=== PATIENT | female | born 1985 | race Caucasian/White ===

== ENCOUNTER 2018-05-21 20:36 | Emergency (ER) | payer MEDICAID, OTHER ==
[~2018-05-21] VITALS: Ht 167.6 cm; Wt 80.7 kg
[2018-05-21 20:52] VITALS: BP 168/93
== END 2018-05-21 23:00 | disposition left against medical advice (07) ==
LOC: ER 20:40
DX: M79.641 Pain in right hand (principal); Z53.21 Procedure and treatment not carried out due to patient leaving prior to being seen by health care provider

== ENCOUNTER 2020-02-11 15:34 | Emergency (ER) | payer SELFPAY ==
[~2020-02-11] VITALS: Ht 167.6 cm; Wt 72.6 kg
[~2020-02-11 15:34] MED LIST: ACYC-161 PO; PREN-96 PO
[2020-02-11 21:22] VITALS: BP 134/83
[2020-02-11] MEDS ORDERED: cefTRIAXone SOD 1,000 MG VL IM ONE (21:30)
== END 2020-02-11 22:46 | disposition home or self-care (01) ==
LOC: ER 15:34
DX: L02.01 Cutaneous abscess of face (principal); L02.811 Cutaneous abscess of head [any part, except face]; L02.11 Cutaneous abscess of neck; Z79.899 Other long term (current) drug therapy
CPT/HCPCS: 96372; 99283; J0696

== ENCOUNTER 2025-03-20 03:06 | Emergency (ER) | payer MEDICAID ==
[~2025-03-20] VITALS: Ht 167.6 cm; Wt 66.1 kg
[~2025-03-20 03:06] MED LIST changes: -ACYC-161 PO; +ACYC400T16 PO
--- NOTE | 2025-03-20 03:34 | ED.PDOC ---
History of Present Illness HPI Comments 39-year-old, homeless female presents with chief complaint of nonradiating, right-sided chest pain. Patient has some this pain intermittently for years, however states she does not like doctors which is why she did not get evaluated for this previously. She reports having associated nonproductive cough and nausea today in addition to having a fever that resolved on its own yesterday although she did not measure her temperature. No pertinent medical, surgical, or family cardiac history. She denies taking any medications currently. Social history for alcohol, tobacco cigarettes, and methamphetamine use. Patient reports last using methamphetamine at 1700, yesterday. Patient denies having any shortness of breath, vomiting, fever, chills, or further acute symptoms. Chief Complaint: Chest pain Time Seen by MD: 03:20 Reviewed Notes: Nurses Notes, Medications, Allergies Allergies: Coded Allergies: NO KNOWN ALLERGIES (Unverified , 05/31/18) Home Meds Reported Medications Vit W/ Ferrous Fumara ( One Daily) Daily Tab, 1 TAB PO DAILY, #90 TAB 3 Refills 06/01/18 Acyclovir (ZOVIRAX TABLET) 400 Mg Tb, 1 TAB PO BID, #60 TAB 3 Refills 06/01/18 Information Source: Patient Mode of Arrival: Ambulatory Severity: Moderate Timing: Days Duration: Since onset Prehospital treatment: None Past Medical History PAST MEDICAL HISTORY: Denies Surgical History: Denies all surgeries 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 History Family History Family History: Reviewed,noncontributory to illness, No family hx of Cancer, No family hx of DM, No family hx of Heart tim, No family hx of HTN, No family hx ofKidney tim, No family hx of Liver tim, No family hx of Lung tim, No family hx of Stroke Social History Smoker: Cigarettes Alcohol: Occasionally Drugs: Methamphetamine Lives In: Homeless All Other Systems: Reviewed and Negative (Comprehensive review of systems are negative unless otherwise stated in HPI) Physical Exam General Appearance: No Apparent Distress, Normal HEENT: Normal ENT Inspection, Pharynx Normal, TMs Normal Neck: Full Range of Motion, Non-Tender, Normal, Normal Inspection Respiratory: Chest Non-Tender, Lungs Clear, No Accessory Muscle Use, No Respiratory Distress, Normal Breath Sounds Cardiovascular: No Edema, No JVD, No Murmur, No Gallop, Normal Peripheral Pulses, Regular Rate/Rhythm Breast Exam: Deferred Gastrointestinal: No Organomegaly, Non Tender, No Pulsatile Mass, Normal Bowel Sounds, Soft Genitalia: Deferred Pelvic: Deferred Rectal: Deferred Extremities: No calf tenderness, Normal capillary refill, Normal inspection, Normal range of motion, Non-tender, No pedal edema Musculoskeletal : Apperance: Normal Neurologic: Alert, jig operator II-XII nml as Tested, No Motor Deficits, Normal Affect, Normal Mood, No Sensory Deficits Cerebellar Function: Normal Reflexes: Normal Skin: Dry, Normal Color, Warm Lymphatic: No Adenopathy Was a procedure done? Was a procedure done?: No EKG EKG : Pulse Rate (adult): 93 [place]: Normal Cardiac Rhythm: NSR Block: None Hypertrophy: None ST: Normal Differential Dx Considerations may include: NC, PE, ACS, URI, pneumonia, angina, anxiety, GERD, substance abuse, substance dependency, among others X-Ray, Labs, Meds, VS Vital Signs Date Time Temp Pulse Resp B/P (MAP) Pulse Ox O2 Delivery O2 Flow Rate FiO2 03/20/25 05:06 97.9 85 16 136/81 (99) 100 97.9 03/20/25 04:19 94 03/20/25 03:33 93 03/20/25 03:07 97.7 100 18 156/102 99 97.7 Lab Test 03/20/25 04:44 03/20/25 03:35 Range/Units Troponin I High Sensitivity Pending < 3 L </=34 ng/L White Blood Count 4.3 L 4.4-10.8 10^3/uL Red Blood Count 3.84 L 4.0-5.20 10^6/uL Hemoglobin 13.4 12.2-16.2 g/dL Hematocrit 39.2 36.0-46.0 % Mean Corpuscular Volume 102.1 H 80.0-100.0 fL Mean Corpuscular Hemoglobin 34.9 H 28.0-32.0 pg Mean Corpuscular Hemoglobin Concent 34.2 32.0-36.0 g/dL Red Cell Distribution Width 11.9 11.8-14.3 % Platelet Count 240 140-450 10^3/uL Mean Platelet Volume 8.0 6.9-10.8 fL Neutrophils (%) (Auto) 42.8 37.0-80.0 % Lymphocytes (%) (Auto) 49.2 10.0-50.0 % Monocytes (%) (Auto) 6.1 0.0-12.0 % Eosinophils (%) (Auto) 1.4 0.0-7.0 % Basophils (%) (Auto) 0.5 0.0-2.0 % Neutrophils # (Auto) 1.9 1.6-8.6 10 ^3/uL Lymphocytes # (Auto) 2.1 0.4-5.4 10 ^3/uL Monocytes # (Auto) 0.3 0-1.3 10 ^3/uL Eosinophils # (Auto) 0.1 0-0.8 10 ^3/uL Basophils # (Auto) 0 0-0.2 10 ^3/uL Nucleated Red Blood Cells 0.1 % Sodium Level 145 136-145 mmol/L Potassium Level 3.7 3.5-5.1 mmol/L Chloride Level 111 H 98-107 mmol/L Carbon Dioxide Level 26 20-31 mmol/L Anion Gap 8 5-15 Blood Urea Nitrogen 11 9-23 mg/dL Creatinine 0.67 0.550-1.02 mg/dL Glomerular Filtration Rate Calc 113 >90 mL/min BUN/Creatinine Ratio 16.4 10.0-20.0 Serum Glucose 76 74-106 mg/dL Calcium Level 9.1 8.7-10.4 mg/dL B-Type Natriuretic Peptide 7.13 0-100 pg/mL Lipase 34 12-53 U/L [place] [id number] Ph: [phone] DIAGNOSTIC IMAGING Diagnostic Imaging Report : [id number] Signed PATIENT: ABDULKADIR PANDYA ACCT: [id number] UNIT: [id number] : 1985 LOC: ER ROOM / BED: / AGE / SEX: 39 / F ADM STATUS: REG ER SERVICE [id number] ORDERING PHYSICIAN: OKSANA MARTINEZ MD PROCEDURE(s): CXRP - CHEST PORTABLE REASON: chest pain ORDER NUMBER(s): [id number], ACCESSION NUMBER(s): [id number] CHEST RADIOGRAPH Indication: chest pain Technique: Single frontal view of the chest was obtained COMPARISON: None FINDINGS: Lines and Tubes: None Lungs: Clear Pleura: No effusion. No pneumothorax. Cardiomediastinal contours: Unremarkable Bones: Unremarkable IMPRESSION: 1. No acute disease. ATED BY: JOSE DANIEL DO MD DICTATED DATE/TIME: 03/20/25503 SIGNED BY: JOSE DANIEL DO MD SIGNED DATE/TIME: 03/20/25503 CC: X-Ray, Labs, Meds, VS Comment Patient presenting with atypical chest pain in the setting of methamphetamine use. Also complaining of cough, nausea, vomiting and subjective fever. Vital signs stable and exam unremarkable. Lab work (CBC, BMP) to evaluate for evidence of severe anemia, electrolyte abnormality including hypokalemia, hyperkalemia, hypernatremia, hyponatremia, hyperglycemia, hypoglycemia, etc. EKG and troponin to evaluate for evidence of arrhythmia, ACS, AMI Chest x-ray to evaluate for pneumonia, pneumothorax, volume overload. Re-evaluate Social determinant surveillance affecting care: Social determinants of health that will affect the patient's care: Poor health literacy (additional time provided an explanation) Drug abuse (provided counseling discussed risks of substance abuse) Alcohol abuse (provided counseling discussed risks of substance abuse) Poor access to outpatient care/followup (provided outpatient resources) Lack of transportation (arrange transportation as needed) Homelessness (provided resources) Time of 1ST Reevaluation: 03:50 Reevaluation 1ST: Unchanged Patient Education/Counseling: Diagnosis, Treatment, Need For Follow Up Family Education/Counseling: No Family Present SEPSIS Sepsis Screen Date sepsis recognized/suspect: Mar 20, 2025 Time Sepsis recognized/suspect: 310 Recent Procedure: No On Antibiotic Therapy: No Respiratory Rate >20: No Heart Rate >90: Yes Temp<36 C (96.8 F) or >38.3 C: No SBP <90 or MAP <65 mmHG: No New Acute Mental Status Change: No Is the patient on CPAP, BIPAP,: No Physician Orders Chest Portable (03/20/25 03:27) Troponin-I Hs (03/20/25 04:27) Electrocardigram (03/20/25 04:27) Electrocardigram (03/20/25 06:27) Vital Signs Date Time Temp Pulse Resp B/P (MAP) Pulse Ox O2 Delivery O2 Flow Rate FiO2 03/20/25 05:06 97.9 85 16 136/81 (99) 100 97.9 03/20/25 04:19 94 03/20/25 03:33 93 03/20/25 03:07 97.7 100 18 156/102 99 97.7 Laboratory Tests Test 03/20/25 03:35 White Blood Count 4.3 10^3/uL (4.4-10.8) L Departure 1 Departure Time of Disposition: 05:30 (On reassessment, patient's symptoms improved. Labs and imaging unremarkable. EKG nonischemic and troponin negative. Discussed with patient need for outpatient follow-up with Cardiology if symptoms persist. Given strict return precautions and PMD follow-up.) Impression: Primary Impression: Acute chest pain Additional Impression: Acute cough Disposition: HOME / SELF CARE / HOMELESS Condition: Stable Discharged With: Self Critical Care Note Critical Care Time?: No Stability Stability form required: No Heart Score Heart Score: Heart Score Response (Comments) Value History Slightly Suspicious 0 EKG Normal 0 Age <45 0 Risk Factors 1 or 2 risk factors 1 Troponin Normal limit 0 Total 1 I personally scribed for OKSANA MARTINEZ MD ([email or web address]) on 03/20/25 at 03:33. E lectronically submitted by Nasir Hardy ([email or web address]). I personally scribed for OKSANA MARTINEZ MD ([email or web address]) on 03/20/25 at 05:16. Electronically submitted by Nasir Hardy ([email or web address]). OKSANA MARTINEZ MD Mar 20, 2025 03:33
[2025-03-20 03:44] LABS: Mean Corpuscular Hemoglobin 34.9 pg (28.0-32.0); Nucleated Red Blood Cells % 0.1 %
[2025-03-20 03:46] LABS: Hematocrit 39.2 % (36.0-46.0); Hemoglobin 13.4 g/dL (12.2-16.2); Mean Corpuscular Volume 102.1 fL (80.0-100.0)
[2025-03-20 04:06] LABS: Potassium 3.7 mmol/L (3.5-5.1)
[2025-03-20 04:07] LABS: Anion Gap 8 (5-15); Carbon Dioxide 26 mmol/L (20-31)
[2025-03-20 04:08] LABS: Calcium 9.1 mg/dL (8.7-10.4)
[2025-03-20 04:12] LABS: Chloride 111 mmol/L (98-107); Sodium 145 mmol/L (136-145)
[2025-03-20 04:13] LABS: BUN/Creatinine Ratio 16.4 (10.0-20.0); Blood Urea Nitrogen 11 mg/dL (9-23); Glucose 76 mg/dL (74-106); Lipase 34 U/L (12-53)
--- NOTE | 2025-03-20 04:21 | ECG ---
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
--- NOTE | 2025-03-20 05:06 | DVH ---
CHEST RADIOGRAPH Indication: chest pain Technique: Single frontal view of the chest was obtained COMPARISON: None FINDINGS: Lines and Tubes: None Lungs: Clear Pleura: No effusion. No pneumothorax. Cardiomediastinal contours: Unremarkable Bones: Unremarkable IMPRESSION: 1. No acute disease.
[2025-03-20 06:03] VITALS: BP 125/79; PULSE 89; RESP 15; TEMP 97.8; O2SAT 100
--- NOTE | 2025-03-22 14:04 | ECG ---
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
== END 2025-03-20 06:12 | disposition home or self-care (01) ==
LOC: ER 03:06
DX: R07.89 Other chest pain (principal); R05.9 Cough, unspecified; F19.90 Other psychoactive substance use, unspecified, uncomplicated; F10.90 Alcohol use, unspecified, uncomplicated; F17.210 Nicotine dependence, cigarettes, uncomplicated; Z79.899 Other long term (current) drug therapy; Z79.624 Long term (current) use of inhibitors of nucleotide synthesis; Z59.00 Homelessness unspecified
CPT/HCPCS: 36415; 71045; 80048; 83690; 83880; 84484; 85025; 93005